=== PATIENT | male | born 1960 | race Caucasian/White ===

== ENCOUNTER 2024-04-18 13:11 | Emergency (ER) | payer OTHER, SELFPAY ==
[2024-04-18] VITALS (12 sets, daily range): BP systolic 109–127; BP diastolic 63–91; BMI 33.4
--- NOTE | 2024-04-18 13:23 | ED.GENMED ---
ED Provider Triage
<Josefina Del Toro NP - Last Filed: 04/18/24 13:32>
-
Patient seen by provider in Triage?: Seen in Triage
Attestation: A medical screening examination has been initiated by a qualified medical provider. Based on the assessment performed at this time, it has been determined that an emergent medical condition may exist and the patient has been informed
that further medical evaluation and possible additional diagnostic testing may be needed.
HPI: 64 yo male NIDDM, neuropathy feet, on ladder 10 feet up at a sharp angle bottom of ladder slid out on mud, he rode the ladder down, right arm was on back of the ladder, got caught underneath all his weight and ladder onto right elbow area.
Grabbed his keys drove here. Arm initially numb, sitting in Triage became pale, faint, sweaty.
GENERAL: Alert , in no apparent distress
EYE: No visual abnormalities.
ENT: No visible abnormalities.
LUNGS: No acute respiratory distress
NEUROLOGICAL: Alert and oriented
SKIN: Skin intact. No visible changes.
MUSCULOSKELETAL: Moving extremities normally
PSYCH: Normal and appropriate interaction.
This is a medical evaluation conducted in person to initiate diagnostic evaluation and provide initial therapeutics. Please see further documentation by the treating clinician.
History of Present Illness
<Josefina Del Toro LICENSED PSYCHOLOGIST MANAGER - Last Filed: 04/18/24 13:32>
General
Chief Complaint: Musculo-Skeletal Complaint
Time Seen by Provider: 04/18/24 13:17
<Cirilo Guthrie PA-C - Last Filed: 04/18/24 19:03>
General
Source: patient
History of Present Illness
History of Present Illness:
64-year-old male with no significant past medical history presenting to the emergency department for evaluation after falling approximately 2-3 steps from a ladder injuring his right forearm noting a significant deformity. Patient denies any other
injuries including head injury, loss consciousness, vomiting, vision changes, focal weakness or numbness. Patient denies any previous history of injury or surgery, denies any use of anticoagulants. Did not take for pain prior to arrival
Past History
<Josefina Del Toro NP - Last Filed: 04/18/24 13:32>
Past History
ED Past Medical History: None
ED Past Surgical History: None
<Cirilo Guthrie PA-C - Last Filed: 04/18/24 19:03>
Social History
Tobacco: Non-smoker
Alcohol: None
Drug: None
Personal:
Living: with family
Review of Systems
<Cirilo Guthrie PA-C - Last Filed: 04/18/24 19:03>
Review of Systems
All Other Systems: ROS reviewed and negative except as documented in HPI and ROS
Phy Exam
<Cirilo Guthrie PA-C - Last Filed: 04/18/24 19:03>
Physical Exam
Physical Exam:
GENERAL: Alert , in no apparent distress
HEAD: NCAT
EYE: conjunctiva clear
NECK: Supple, no midline ttp
ENT: o/p clr, mmm.
CARDIAC: Regular rate and rhythm
LUNGS: Clear breath sounds bilaterally, no acute respiratory distress, no wheezes/rales/rhonchi
NEUROLOGICAL: Alert and oriented
SKIN: Warm and dry, skin intact.
MUSCULOSKELETAL: Right upper extremity: Obvious deformity noted to the distal third of the right forearm with an overlying abrasion but no bone protruding through or active bleeding. Easily palpable radial pulse. Cap refill less than 2 seconds.
Sensation grossly intact to light touch throughout. Patient able to move digits but has significant pain with any attempted range of motion of the elbow or wrist. No tenderness to the shoulder or proximal humerus
PSYCH: Normal and appropriate interaction.
Scores
<Cirilo Guthrie PA-C - Last Filed: 04/18/24 19:03>
Heart Failure Risk
Heart Failure Risk Score: Not Applicable
Heart Score for Chest Pain Patients
STEMI patient?: Not applicable
Withdrawal Assessment of Alcohol
Withdrawal Assessment Completed?: Not applicable
Course
<Josefina Del Toro, LICENSED PSYCHOLOGIST MANAGER - Last Filed: 04/18/24 13:32>
Orders/Labs/Results
Orders:
Orders
04/18/24 13:30
Forearm, Right 2 View [CR Forearm - Right 2 View] Urgent
Comment:
Reason For Exam: fall, ladder, obvious deformity
04/18/24 13:31
HYDROmorphone [Dilaudid] 1 mg IM NOW STA
04/18/24 13:32
Ondansetron HCl [Zofran] 4 mg PO NOW STA
04/18/24 13:33
Complete Blood Count/With Diff Urgent
Comprehensive Metabolic Panel Urgent
04/18/24 15:54
Propofol [Diprivan] 20 ml .ROUTE .STK-MED
04/18/24 16:14
CR Forearm - Right 2 View Urgent
Comment:
Reason For Exam: post reduction
Abnormal Lab Results
04/18/24 04/18/24
13:24 13:33
MPV 12.1 H fL
(7.4-10.4)
Abs Immat Gran (auto) 0.1 H 10^3/uL
(0-0.05)
Absolute Monos (auto) 0.7 H 10^3/uL
(0.1-0.6)
Immature Gran % 0.6 H %
(0-0.5)
Carbon Dioxide 17 L mmol/L
(22-30)
Glucose 170 H mg/dl
(70-99)
Total Bilirubin 2.1 H mg/dl
(0.2-1.3)
POC Glucose 168 H mg/dl
(70-99)
04/18/24 13:33
04/18/24 13:33
Vital Signs
Initial and Last Documented VS:
Initial Vital Signs
Temp Pulse Resp BP Pulse Ox
98.8 F 72 22 124/79 100
04/18/24 13:14 04/18/24 13:14 04/18/24 13:14 04/18/24 13:14 04/18/24 13:14
Last Documented Vital Signs
Temp Pulse Resp BP Pulse Ox
98.8 F 68 12 119/81 99
04/18/24 13:14 04/18/24 17:46 04/18/24 17:46 04/18/24 17:46 04/18/24 17:59
<Cirilo Guthrie PA-C - Last Filed: 04/18/24 19:03>
Orders/Labs/Results
Orders:
Orders
04/18/24 13:30
Forearm, Right 2 View [CR Forearm - Right 2 View] Urgent
Comment:
Reason For Exam: fall, ladder, obvious deformity
04/18/24 13:31
HYDROmorphone [Dilaudid] 1 mg IM NOW STA
04/18/24 13:32
Ondansetron HCl [Zofran] 4 mg PO NOW STA
04/18/24 13:33
Complete Blood Count/With Diff Urgent
Comprehensive Metabolic Panel Urgent
04/18/24 15:54
Propofol [Diprivan] 20 ml .ROUTE .STK-MED
04/18/24 16:14
CR Forearm - Right 2 View Urgent
Comment:
Reason For Exam: post reduction
Abnormal Lab Results
04/18/24 04/18/24
13:24 13:33
MPV 12.1 H fL
(7.4-10.4)
Abs Immat Gran (auto) 0.1 H 10^3/uL
(0-0.05)
Absolute Monos (auto) 0.7 H 10^3/uL
(0.1-0.6)
Immature Gran % 0.6 H %
(0-0.5)
Carbon Dioxide 17 L mmol/L
(22-30)
Glucose 170 H mg/dl
(70-99)
Total Bilirubin 2.1 H mg/dl
(0.2-1.3)
POC Glucose 168 H mg/dl
(70-99)
04/18/24 13:33
04/18/24 13:33
Vital Signs
Initial and Last Documented VS:
Initial Vital Signs
Temp Pulse Resp BP Pulse Ox
98.8 F 72 22 124/79 100
04/18/24 13:14 04/18/24 13:14 04/18/24 13:14 04/18/24 13:14 04/18/24 13:14
Last Documented Vital Signs
Temp Pulse Resp BP Pulse Ox
98.8 F 68 12 119/81 99
04/18/24 13:14 04/18/24 17:46 04/18/24 17:46 04/18/24 17:46 04/18/24 17:59
<Carmel Vidal, DO - Last Filed: 04/18/24 16:20>
Orders/Labs/Results
Orders:
Orders
04/18/24 13:30
Forearm, Right 2 View [CR Forearm - Right 2 View] Urgent
Comment:
Reason For Exam: fall, ladder, obvious deformity
04/18/24 13:31
HYDROmorphone [Dilaudid] 1 mg IM NOW STA
04/18/24 13:32
Ondansetron HCl [Zofran] 4 mg PO NOW STA
04/18/24 13:33
Complete Blood Count/With Diff Urgent
Comprehensive Metabolic Panel Urgent
04/18/24 15:54
Propofol [Diprivan] 20 ml .ROUTE .STK-MED
04/18/24 16:14
CR Forearm - Right 2 View Urgent
Comment:
Reason For Exam: post reduction
Abnormal Lab Results
04/18/24 04/18/24
13:24 13:33
MPV 12.1 H fL
(7.4-10.4)
Abs Immat Gran (auto) 0.1 H 10^3/uL
(0-0.05)
Absolute Monos (auto) 0.7 H 10^3/uL
(0.1-0.6)
Immature Gran % 0.6 H %
(0-0.5)
Carbon Dioxide 17 L mmol/L
(22-30)
Glucose 170 H mg/dl
(70-99)
Total Bilirubin 2.1 H mg/dl
(0.2-1.3)
POC Glucose 168 H mg/dl
(70-99)
04/18/24 13:33
04/18/24 13:33
Vital Signs
Initial and Last Documented VS:
Initial Vital Signs
Temp Pulse Resp BP Pulse Ox
98.8 F 72 22 124/79 100
04/18/24 13:14 04/18/24 13:14 04/18/24 13:14 04/18/24 13:14 04/18/24 13:14
Last Documented Vital Signs
Temp Pulse Resp BP Pulse Ox
98.8 F 68 12 119/81 99
04/18/24 13:14 04/18/24 17:46 04/18/24 17:46 04/18/24 17:46 04/18/24 17:59
Procedures
<Cirilo Guthrie PA-C - Last Filed: 04/18/24 19:03>
Splinting/Sling Placement
Right Lower Arm:
Procedure completed by: Jerri
Pre-splint extermity exam: neurovascular intact
Type of splint: sugar-tong
Splint material: other (3in orthoglass)
Splint checked by provider?: Yes
Type of sling: sling fitted
Normal distal neurovascular exam?: Yes
<Carmel Vidal DO - Last Filed: 04/18/24 16:20>
Moderate Sedation
ASA Risk Score: Class I
Chart and allergies reviewed: Yes
Consent for anesthesia obtained: Yes
Time out completed (validating right patient & procedure): Yes
Moderate Sedation Start Time(when first medication is given): 16:02
History of difficult intubation: No
Airway free of obstruction: Yes
Patient has a gag reflex: Yes
Patient is able to open mouth: Yes
Patient has no dentures: Yes
Patient has no loose teeth: Yes
Medication administered by Provider during Moderate Sedation: IV Propofol (mg)
Total dose administered: 70
Time drug administered: 16:02
Moderate Sedation Procedure End Time: 16:20
Joint/Fracture Reduction
Right Distal Arm:
Indication for procedure:: displaced radius
Procedure completed by: Ion Guthrie PA-C, Carmel Vidal DO
Consent form signed: Yes
Joint reduced: with anesthesia sedation
Anesthesia/sedation: Moderate sedation
Injury was: closed
Further treatement: no treatment needed
Post reduction exam: stable
Capillary Refill: normal
Normal distal neurovascular exam?: Yes
<Cirilo Guthrie PA-C - Last Filed: 04/18/24 19:03>
MDM/Problems Addressed
Differential Diagnosis Includes:
Forearm fracture, exam does not reveal a compound fracture, no concern for neurovascular injury
MDM/Problems Addressed:
64-year-old male presenting to the emergency department after falling approximately 2-3 steps from a ladder landing on his right forearm with obvious deformity noted. Labs and x-ray were ordered from triage and x-ray shows a distal radial shaft
fracture with significant angulation and displacement. Patient would likely benefit from closed reduction as this could potentially lessen his need for surgical intervention. Risk and benefit of procedure were reviewed with patient and patient was
ultimately agreeable to the closed reduction/sedation. Patient has not seen orthopedic doctor in over 20 years. Will refer to on-call. Anticipate discharge home.
<Cirilo Guthrie PA-C - Last Filed: 04/18/24 19:03>
*Radiology
Radiology exam reviewed: preliminary read by ED provider (Angulated and displaced distal radial fracture)
*Pulse Oximetry
Patient hypoxic: no
*Critical Care Note
Total Time (30-74mins, 75-104mins- exclusive of procedures): Not Applicable
<Cirilo Guthrie PA-C - Last Filed: 04/18/24 19:03>
Patient Management
Escalation/DeEscalation of care consider admission/obs:
sedation and reduction as above. Patient to follow up with ortho. Aware of return precautions
ED Attending Note
<Josefina Del Toro NP - Last Filed: 04/18/24 13:32>
-
Portions of this chart may have been created with voice recognition software.� Occasional wrong word or��sound alike� substitutions may have occurred due to the inherent limitations of voice recognition software.
<Carmel Vidal DO - Last Filed: 04/18/24 16:20>
ED Attending Note
Patient seen and examined by attending physician: Yes
I performed the substantive portion of visit, reviewed & personally made and approve the management plan that is documented in note by myself or OLAYINKA.: Yes
I performed a history and physical exam of patient and discussed management with resident, I reviewed resident's note and agree with documented findings and plan of care.: Yes
ED Attending Note:
Patient seen and examined at bedside, 64-year-old male presenting with obvious right forearm injury after fall off ladder. Patient arrives to the hospital with right forearm and elbow pain. Denies head injury or loss of consciousness. He is not
on any thinners. Vital signs are normal.
On exam, patient with obvious deformity to the right forearm, with x-ray confirmation of displaced radius fracture, concerning for Galeazzi fracture. No neurovascular compromise on exam. Assisted with procedural sedation given patient's level of
pain. No complications. Will perform repeat x-ray imaging. Sling placed. Plan for outpatient orthopedic follow-up
Discharge Plan
Departure
Patient Disposition: Home (Routine Discharge)
Date of Disposition: 04/18/24
Time of Disposition: 17:04
Patient with high blood pressure during this ER visit?: No
Discharge Problem:
Closed fracture of shaft of right radius
Instructions: Forearm and Wrist Fractures ED
Prescriptions:
New
oxycodone-acetaminophen [Percocet] 5-325 mg tablet
1 tab PO Q6HPRN PRN (Reason: pain) Qty: 6 0RF
Referrals:
Sandro Whyte MD [Family Provider] -
Jennifer Love I., DO [Active] - (Ortho - Please call for appointment)
Interventions
Interventions:
*Risk Screen - Suicide Last Done: 04/18/24 14:42
*General Assessment Last Done: 04/18/24 14:26
*Neglect/Abuse Screening Last Done: 04/18/24 14:42
ED- Fall Risk Assessment Last Done: 04/18/24 14:26
*ED COVID-19 Vaccine History Last Done: 04/18/24 14:26
*Nursing Disposition Last Done: 04/18/24 17:59
ED-Musculoskeletal Assessment Last Done: 04/18/24 14:26
Discharge Date and Time
Discharge Date/Time: 04/18/24 18:02
Print Language: LITHUANIAN
[2024-04-18 13:26] LABS: Glucose - Point of Care 168 mg/dl (70-99)
[2024-04-18] MEDS: DILAUDID 1 MG IM (13:41)
[2024-04-18] MEDS: ZOFRAN 4 MG PO (13:41)
[2024-04-18 13:45] LABS: % Basophils 0.8 % (0-2); % Eosinophils 1.1 % (0-6); % Immature Granulocytes 0.6 % (0-0.5); % Lymphocytes 26.8 % (20.5-51.1); % Monocytes 7.6 % (1.7-9.3); % Neutrophils 63.1 % (42.2-75.2); Absolute Basophils 0.1 10^3/uL (0-0.2); Absolute Eosinophils 0.1 10^3/uL (0-0.7); Absolute Immature Granulocytes 0.1 10^3/uL (0-0.05); Absolute Lymphocytes 2.4 10^3/uL (1.2-3.4); Absolute Monocytes 0.7 10^3/uL (0.1-0.6); Absolute Neutrophils 5.6 10^3/uL (1.4-6.5); Hematocrit 44.1 % (39.0-52.0); Hemoglobin 15.6 g/dL (13.0-18.0); Mean Corp Hgb Conc. 35.4 g/dL (33.0-37.0); Mean Corpuscular Hgb 29.1 pg (27.0-31.0); Mean Corpuscular Volume 82.3 fL (80.0-94.0); Mean Platelet Volume 12.1 fL (7.4-10.4); Nucleated Red Blood Cells % 0 % (-); Platelet Count 190 10^3/uL (130-400); Red Blood Cell Count 5.36 10^6/uL (4.70-6.10); Red Cell Dist. Width 13.3 % (11.5-14.5); White Blood Cell Count 8.8 10^3/uL (4.8-10.8)
[2024-04-18 13:55] LABS: ALT (SGPT) 23 U/L (0-50); AST (SGOT) 24 U/L (17-59); Albumin 4.7 g/dl (3.5-5.0); Alkaline Phosphatase 39 U/L (38-126); Blood Urea Nitrogen 17 mg/dl (9-20); Calcium 9.8 mg/dl (8.4-10.2); Carbon Dioxide 17 mmol/L (22-30); Chloride 106 mmol/L (98-107); Glucose 170 mg/dl (70-99); Potassium 4.2 mmol/L (3.5-5.1); Sodium 141 mmol/L (135-145); Total Bilirubin 2.1 mg/dl (0.2-1.3); Total Protein 7.4 g/dl (6.3-8.2); eGFR > 60.00
== END 2024-04-18 18:02 | disposition home or self-care (01) ==
LOC: EMR 13:11
PROVIDERS: Registered Nurse; EMERGENCY PHYSICIAN Student in an Organized Health Care Education/Training Program; FAMILY PHYSICIAN Family Medicine
DX: S52.321A Displaced transverse fracture of shaft of right radius, initial encounter for closed fracture (principal); W11.XXXD Fall on and from ladder, subsequent encounter; E11.9 Type 2 diabetes mellitus without complications; G62.9 Polyneuropathy, unspecified
CPT/HCPCS: 25505; 99285; 99152; 96372; 73090; 80053; 82962; 85025

== ENCOUNTER → 2024-04-20 06:22 | Day surgery (SDC) | payer OTHER, SELFPAY ==
[2024-04-20] VITALS (11 sets, daily range): BP systolic 108–138; BP diastolic 70–95; BMI 33.1
[2024-04-20 14:21] LABS: Glucose - Point of Care 118 mg/dl (70-99)
[2024-04-20 17:27] LABS: Glucose - Point of Care 137 mg/dl (70-99)
== END ==
LOC: SDS 06:22
PROVIDERS: ATTENDING PHYSICIAN Orthopaedic Surgery
DX: S52.331A Displaced oblique fracture of shaft of right radius, initial encounter for closed fracture (principal); W11.XXXA Fall on and from ladder, initial encounter; Y93.89 Activity, other specified; Y92.008 Other place in unspecified non-institutional (private) residence as the place of occurrence of the external cause
CPT/HCPCS: 25515; C1713; 73100; 76000; 82962; 93005

== ENCOUNTER → 2024-07-20 09:35 | Outpatient (REF) | payer OTHER, SELFPAY | LOC: HWRAD 09:35 | PROVIDERS: ATTENDING PHYSICIAN Family Medicine | DX: N28.1 Cyst of kidney, acquired (principal) | CPT/HCPCS: 76775 ==